=== PATIENT | female | born 1995 | race Caucasian/White ===

== ENCOUNTER → 2018-04-05 | Outpatient (CLI) | payer BC ==
--- NOTE | 2018-04-05 14:53 | RAD ---
EXAM DESCRIPTION: Foot,Right 3 Views CLINICAL HISTORY: CLOSED FRACTURE OF FIFTH METATARSAL COMPARISON: None Available. TECHNIQUE: AP, LATERAL, AND OBLIQUE FINDINGS: The visualized bones appear well mineralized. Nondisplaced fracture of the base of the fifth metatarsal is noted. There is associated soft tissue swelling. IMPRESSION: Nondisplaced fracture of the base of the fifth metatarsal with associated soft tissue swelling. Electronically signed by: Oliva Huerta MD 04/05/2018 2:50 PM [facility]
== END ==
LOC: RAD 09:57
PROVIDERS: ATTEND Orthopaedic Surgery
DX: S92.354A Nondisplaced fracture of fifth metatarsal bone, right foot, initial encounter for closed fracture (principal)

== ENCOUNTER → 2018-05-03 | Outpatient (CLI) | payer BC ==
--- NOTE | 2018-05-03 10:36 | RAD ---
EXAM DESCRIPTION: Foot,Right 3 Views CLINICAL HISTORY: 22 years, Female, S92.301D COMPARISON: Previous x-ray right foot April 05, 2018 TECHNIQUE: AP, lateral, and oblique views of the right foot FINDINGS: Fractured base of the fifth metatarsal was better seen on the previous study suggesting partial interval healing. Minimal overlying soft tissue thickening. Vascular calcification is present. Toes appear intact. No midfoot malalignment. Sclerotic bridging callus is seen proximally. Oblique view strongly suggests bridging callus with significant healing since previous exam There is no other bone, joint, or soft tissue abnormality observed. There is no radiopaque foreign body. IMPRESSION: Healing fracture of the base of the right fifth metatarsal. Electronically signed by: Jim Calvo MD 05/03/2018 10:33 AM CDT
== END ==
LOC: RAD 08:08
PROVIDERS: ATTEND Orthopaedic Surgery
DX: S92.354D Nondisplaced fracture of fifth metatarsal bone, right foot, subsequent encounter for fracture with routine healing (principal)

== ENCOUNTER → 2018-06-01 | Outpatient (CLI) | payer BC ==
--- NOTE | 2018-06-01 10:15 | RAD ---
EXAM DESCRIPTION: Foot,Right 3 Views CLINICAL HISTORY: 22 years, Female, S92.354D,closed fx of metatarsal bone COMPARISON: Previous studies May 03, 2018 and April 05, 2018 TECHNIQUE: AP, lateral, and oblique views of the right foot FINDINGS: Fractured base of the fifth metatarsal is seen. On the various views this appears partially healed. No change in alignment since previous study. Fracture line is still partially visible. IMPRESSION: Healing fracture of the base of the right fifth metatarsal. Electronically signed by: Jim Calvo MD 06/01/2018 10:12 AM CDT
== END ==
LOC: RAD 07:54
PROVIDERS: ATTEND Orthopaedic Surgery
DX: S92.354D Nondisplaced fracture of fifth metatarsal bone, right foot, subsequent encounter for fracture with routine healing (principal)